=== PATIENT | female | born 1955 ===

== ENCOUNTER 2017-02-12 18:58 | Emergency (ER) | payer MEDICAID ==
[2017-02-12 20:28] VITALS: BP 121/80; PULSE 80; RESP 20; TEMP 98.2; O2SAT 97
--- NOTE | 2017-02-12 20:48 | C.PDOC ---
History Of Present Illness The patient, a 61 y/o female whose PMHx includes DM and CABG, presents to the ED for evaluation of left arm pain which began around 1 week ago. Patient states her pain is exacerbated by movement and reports a slight tingling sensation to her fingers. Otherwise, patient denies fever, chills, chest pain, shortness of breath, numbness/weakness, recent trauma or falls. Time Seen by Provider: 02/12/17 19:21 Chief Complaint (Nursing): Upper Extremity Problem/Injury History Per: Patient History/Exam Limitations: no limitations Onset/Duration Of Symptoms: Days Current Symptoms Are (Timing): Still Present Quality: "Pain" Exacerbating Factor(s): Movement Additional History Per: Patient Past Medical History Reviewed: Historical Data, Nursing Documentation, Vital Signs Vital Signs: Last Vital Signs Temp 98.2 F 02/12/17 20:26 Pulse 80 02/12/17 20:26 Resp 20 02/12/17 20:26 BP 121/80 02/12/17 20:26 Pulse Ox 97 02/12/17 22:23 - Medical History PMH: Diabetes, HTN, Hypercholesterolemia Surgical History: CABG Family History: States: Unknown Family Hx - Social History Hx Alcohol Use: No Hx Substance Use: No - Immunization History Hx Tetanus Toxoid Vaccination: No Hx Influenza Vaccination: No Hx Pneumococcal Vaccination: No Review Of Systems Except As Marked, All Systems Reviewed And Found Negative. Constitutional: Negative for: Fever, Chills Cardiovascular: Negative for: Chest Pain Respiratory: Negative for: Shortness of Breath Musculoskeletal: Positive for: Arm Pain (left) Neurological: Positive for: Other (+tingling sensation to fingers of left arm ) . Negative for: Weakness, Numbness Physical Exam - Physical Exam Appears: Non-toxic, No Acute Distress Skin: Normal Color, Warm, Dry, No Rash, No Other (no erythema ) Head: Atraumatic, Normacephalic Eye(s): bilateral: Normal Inspection Oral Mucosa: Moist Neck: Supple Chest: Symmetrical, No Deformity, No Tenderness Cardiovascular: Rhythm Regular, No Murmur Respiratory: Normal Breath Sounds, No Rales, No Rhonchi, No Wheezing Back: Normal Inspection, No Vertebral Tenderness, No Paraspinal Tenderness Extremity: No Normal ROM (limited secondary to pain with abduction of less than 90 ), Tenderness (to posterior aspect of left shoulder ), Capillary Refill ( less than 2 seconds ), Swelling (to lateral aspects of left upper arm and shoulder ) Pulses: Left Radial: Normal, Right Radial: Normal Neurological/Psych: Oriented x3, Normal Speech, Normal Cognition, Other (no focal deficits ) Gait: Steady ED Course And Treatment ECG: Interpreted By Me, Viewed By Me ECG Rhythm: Sinus Rhythm Interpretation Of ECG: Normal Sinus Rhythm at rate 79bpm. Rate From EC O2 Sat by Pulse Oximetry: 97 (on RA) Pulse Ox Interpretation: Normal - Other Rad Left shoulder XR X-Ray: Interpreted by Me, Viewed By Me, Read By Radiologist Interpretation: Accession No. : [id number]. Patient Name / ID : GAURANG SOTELO / [id number]. Exam Date : 02/12/2017 20:11:14 ( Approved ). Study Comment : Sex / Age : F / 61Y. Creator : Alecia Alfredo MD. Dictator : Alecia Alfredo MD. Garbage Worker : Drum Reel Cutter : Alecia Alfredo MD. Approver2 : Report Date : 02/12/2017 21:34:39. My Comment : . PROCEDURE: Radiographs of the Left Shoulder. HISTORY: shoulder and arm pain, swelling at lateral aspect. COMPARISON: None available. FINDINGS: BONES: Irregularity of the lateral 4th rib suspicious for acute fracture. Remainder the visualized osseous structures appear intact. The distal clavicle appears intact. JOINTS: No acute dislocation. SOFT TISSUES: Soft tissues appear unremarkable. No evidence of radiopaque foreign body. IMPRESSION: Irregularity of the lateral 4th rib suspicious for acute fracture. Correlate clinically. Recommend dedicated rib series for further evaluation. Study marked for PA review. Left Humerus XR X-Ray: Interpreted by Me, Viewed By Me, Read By Radiologist Interpretation: Accession No. : [id number]. Patient Name / ID : GAURANG SOTELO / [id number]. Exam Date : 02/12/2017 20:18:54 ( Approved ). Study Comment : Sex / Age : F / 61Y. Creator : Alecia Alfredo MD. Dictator : Alecia Alfredo MD. Garbage Worker : Drum Reel Cutter : Alecia Alfredo MD. Approver2 : Report Date : 02/12/2017 21:37:03. My Comment : . PROCEDURE: Radiographs of the right humerus. HISTORY: SHOULDER AND ARM PAIN AND SWELLING. COMPARISON: None available. FINDINGS: BONES: Osseous demineralization. Degenerative changes. No acute displaced fracture or dislocation. SOFT TISSUES: No evidence of radiopaque foreign body. OTHER FINDINGS: None. IMPRESSION: No acute displaced fracture, dislocation, or significant joint effusion identified. If symptoms persist, or if there is continued clinical concern, x-ray follow-up in 7-10 days should be considered. Progress Note: labs, EKG, left shoulder XR, left humerus XR ordered and reviewed. XR results are unremarkable. Patient received Toradol IM and Valium PO. Medical Decision Making Medical Decision Making: The pain is muscular in nature as it is reproducible and worsened with movement. Sling was applied with good relief, but was instructed to use it for a short period of time to avoid frozen shoulder. Disposition - Disposition Referrals: [facility] [Outside] Disposition: HOME/ ROUTINE Disposition Time: 20:59 Condition: GOOD Additional Instructions: Follow up with the medical doctor within 1-2 days without fail. Return if worsened. s Prescriptions: Naproxen [Naprosyn] 500 mg PO BID #20 tab traMADol/Acetaminophen [Ultracet 325 MG-37.5 MG] 1 tab PO Q8 PRN #15 tab PRN Reason: Pain Instructions: Cervical Radiculopathy (ED), Muscle Spasm (ED) - Clinical Impression Clinical Impression: Cervical radiculopathy, Muscle spasm - PA / PEDIATRIC SPEECH THERAPIST / Resident Statement / has reviewed & agrees with the documentation as recorded. - Scribe Statement The provider has reviewed the documentation as recorded by the Scribe (Carmen Kelly) All medical record entries made by the Scribe were at my direction and personally dictated by me. I have reviewed the chart and agree that the record accurately reflects my personal performance of the history, physical exam, medical decision making, and the department course for this patient. I have also personally directed, reviewed, and agree with the discharge instructions and disposition.
--- NOTE | 2017-02-12 21:36 | RAD ---
PROCEDURE: Radiographs of the Left Shoulder HISTORY: shoulder and arm pain, swelling at lateral aspect COMPARISON: None available. FINDINGS: BONES: Irregularity of the lateral 4th rib suspicious for acute fracture. Remainder the visualized osseous structures appear intact. The distal clavicle appears intact. JOINTS: No acute dislocation. SOFT TISSUES: Soft tissues appear unremarkable. No evidence of radiopaque foreign body. IMPRESSION: Irregularity of the lateral 4th rib suspicious for acute fracture. Correlate clinically. Recommend dedicated rib series for further evaluation. Study marked for PA review.
--- NOTE | 2017-02-12 21:43 | RAD ---
PROCEDURE: Radiographs of the right humerus. HISTORY: SHOULDER AND ARM PAIN AND SWELLING COMPARISON: None available. FINDINGS: BONES: Osseous demineralization. Degenerative changes. No acute displaced fracture or dislocation. SOFT TISSUES: No evidence of radiopaque foreign body. OTHER FINDINGS: None. IMPRESSION: No acute displaced fracture, dislocation, or significant joint effusion identified. If symptoms persist, or if there is continued clinical concern, x-ray follow-up in 7-10 days should be considered.
--- NOTE | 2017-02-19 14:15 | CARD ---
APPROVED REPORT EKG Measurement Heart [id number] AR 152P [id number] <Conclusion> Limb lead reversal repeat ekg
== END 2017-02-12 21:47 | disposition home or self-care (01) ==
LOC: C.ER 18:58
DX: M54.12 Radiculopathy, cervical region (principal); M62.838 Other muscle spasm; I10 Essential (primary) hypertension; E11.9 Type 2 diabetes mellitus without complications; E78.00 Pure hypercholesterolemia, unspecified; Z95.1 Presence of aortocoronary bypass graft
CPT/HCPCS: 73030; 73060; 96372; 99284; J1885